=== PATIENT | female | born 1940 | race Caucasian/White ===

== ENCOUNTER 2021-04-21 12:13 | Inpatient (IN) | payer MEDICARE ==
[2021-04-21 12:57] LABS: #Eosinphils 0.1 10x3/uL (0.0-0.5); #Monocytes 0.8 10x3/uL (0.0-1.1); #Neutrophils 11.1 10x3/uL (1.5-8.4); %Basophils 0.3 % (0.0-2.0); %Eosinophils 0.4 % (0.0-6.0); %Lymphocytes 4.2 % (18.0-47.0); %Monocytes 6.5 % (0.0-10.0); Hemoglobin 12.5 g/dL (12.0-15.5); Mean Corpuscular HGB CONC 33.3 g/dL (32.0-36.0); Mean Corpuscular Hemoglobin 29.2 pg (27.0-33.0); Mean Corpuscular Volume 87.6 fl (81.6-98.3); Mean Platelet Volume 11.6 fl (7.4-10.4); Platelet Count 153 10x3/uL (150-450); RBC Distribution Width 13.4 % (11.5-14.5); Red Blood Cell (RBC) Count 4.28 10x6/uL (3.90-5.03); White Blood Cell (WBC) Count 12.6 10x3/uL (3.5-10.5)
[2021-04-21 13:08] LABS: ALT (SGPT) 25 U/L (8-55); AST (SGOT) 24 U/L (5-34); Albumin 3.8 g/dL (3.4-4.8); Alkaline Phosphatase 44 U/L (40-110); Anion Gap 15 mmol/L (10-20); BUN (Urea Nitrogen) 17 mg/dL (9.8-20.1); Bilirubin, Total 0.9 mg/dL (0.2-1.2); CK (CPK) 59 U/L (29-168); Calc. Creatinine Clearance 0 mL/min (70-130); Calcium 8.9 mg/dL (7.8-10.44); Carbon Dioxide 20 mmol/L (23-31); Chloride 100 mmol/L (98-107); Globulin 2.2 g/dL (2.4-3.5); Glucose 136 mg/dL (83-110); Potassium 4.1 mmol/L (3.5-5.1); Sodium 131 mmol/L (136-145)
[2021-04-21 14:03] LABS: Bilirubin Neg (Negative); Blood, Urine 10 (Negative); Clarity Clear (Clear); Glucose, Urine (Dipstick) Normal (Negative); Ketone, Urine 5 mg/dL (Negative); Leukocyte Negative (Negative); Nitrite Negative (Negative); Protein, Urine (Dipstick) 30 mg/dl (Neg-Trace); Specific Gravity, Urine 1.015 (1.002-1.036); Urobilinogen Normal mg/dL (Less than 2)
[2021-04-21 14:14] LABS: Bacteria/HPF None Seen HPF (None Seen); RBC/HPF 0-3 HPF (0-3); Squamous Epithelial 0-3 HPF (0-3); WBC/HPF 0-3 HPF (0-3)
[2021-04-21] MEDS ORDERED: Boostrix 0.5 ML (Tdap) VIAL ONE (15:25)
[2021-04-21] MEDS ORDERED: Bisacodyl 5 MG TAB PO PRN (16:45)
[2021-04-21] MEDS ORDERED: Senokot S 8.6-50 MG TAB PO PRN (16:45)
[2021-04-21] MEDS ORDERED: Ondansetron PF 4 MG/2 ML Vial IVP PRN (16:45)
[2021-04-21] MEDS ORDERED: Acetaminophen 650 MG/20.3 ML UDCUP PO SCH (18:00)
[2021-04-21 22:44] VITALS: BMI 22.2
[2021-04-21] MEDS: Acetaminophen 325 MG TAB PO PRN (22:50)
[2021-04-22] MEDS ORDERED: Ibuprofen 400 MG TAB PO SCH (02:45)
[2021-04-22] MEDS ORDERED: ALPRAZolam 0.25 MG TAB PO SCH (02:45)
[2021-04-22] MEDS: Acetaminophen 325 MG TAB PO PRN (04:05)
[2021-04-22 04:40] LABS: Hemoglobin 12.6 g/dL (12.0-15.5); Mean Corpuscular HGB CONC 32.7 g/dL (32.0-36.0); Mean Corpuscular Hemoglobin 28.8 pg (27.0-33.0); Mean Corpuscular Volume 88.1 fl (81.6-98.3); Mean Platelet Volume 11.6 fl (7.4-10.4); Platelet Count 145 10x3/uL (150-450); RBC Distribution Width 13.5 % (11.5-14.5); Red Blood Cell (RBC) Count 4.37 10x6/uL (3.90-5.03); White Blood Cell (WBC) Count 16.4 10x3/uL (3.5-10.5)
[2021-04-22 04:45] LABS: ALT (SGPT) 21 U/L (8-55); AST (SGOT) 18 U/L (5-34); Albumin 3.5 g/dL (3.4-4.8); Alkaline Phosphatase 42 U/L (40-110); Anion Gap 13 mmol/L (10-20); BUN (Urea Nitrogen) 14 mg/dL (9.8-20.1); Bilirubin, Total 0.9 mg/dL (0.2-1.2); Calc. Creatinine Clearance 45 mL/min (70-130); Calcium 8.9 mg/dL (7.8-10.44); Carbon Dioxide 20 mmol/L (23-31); Cardiac Risk 1.7 (Less than 4.5); Chloride 102 mmol/L (98-107); Cholesterol 81 mg/dl (< 200 Desired); Globulin 2.3 g/dL (2.4-3.5); Glucose 90 mg/dL (83-110); HDL Cholesterol 48 mg/dL (>60 Neg Risk); LDL Cholesterol, Calculated 26 mg/dL; Magnesium 1.4 mg/dL (1.6-2.6); Phosphorus 3.4 mg/dL (2.3-4.7); Protein, Total 5.8 g/dL (5.8-8.1); Sodium 131 mmol/L (136-145); Triglycerides 36 mg/dL (Less than 150)
[2021-04-22 04:56] LABS: MDiff Complete? YES
[2021-04-22 04:58] LABS: Band 27 % (5-11); Lymphocytes 1 % (21-51); Monocytes 5 % (0-10); Neutrophil 67 % (42-75)
[2021-04-22 05:00] LABS: Platelet Morphology Comment Appears Adequate; RBC Morphology Normal
[2021-04-22] MEDS ORDERED: Aspirin 81 mg Enteric Coated Tablet PO SCH (09:00)
[2021-04-22] MEDS ORDERED: Azithromycin 500 MG in Sodium Chloride 0.9% 250 ML 250 ML IVPB SCH (09:15)
[2021-04-22] MEDS ORDERED: cefTRIAXone\\ROCEPHIN 2 GM in Sodium Chloride 0.9% 100 ML IVPB SCH (09:15)
[2021-04-22] MEDS: Pramipexole Di-HCl 0.25 MG TAB PO SCH (09:35)
[2021-04-22 10:16] LABS: Legionella Urinary Ag Negative (Negative); Strep pneumo Urine Ag NEGATIVE (NEGATIVE)
[2021-04-22] MEDS: Albuterol Sulfate 2.5 mg/3 ml Neb NEB SCH ×2 (11:05→15:33)
[2021-04-22] MEDS: Azithromycin 500 MG in Sodium Chloride 0.9% 250 ML 250 ML IVPB SCH (11:40)
[2021-04-22 13:41] LABS: Hemoglobin A1c 5.9 % (4.0-6.0)
[2021-04-22] MEDS ORDERED: Acetaminophen 650 MG/20.3 ML UDCUP PO PRN (14:30)
[2021-04-22 16:13] LABS: Actual Bicarbonate (HCO3v) 16 mEq/L (22-28); Base Excess -8.1 mEq/L (-2.0 to +3.0); Calcium, Ionized (venous) 0.98 mmol/L (1.16-1.32); Chloride (VBG) 104 mmol/L (98-106); Hemoglobin (Hb) 9.7 g/dL (11.7-16.1); Potassium (VBG) 3.84 mmol/L (3.70-5.30); Puncture Site Other Site; RapidComm Collect By lab; Sodium 127.8 mmol/L (133-146); pH (venous) 7.35 (7.32-7.43)
[2021-04-22 16:32] LABS: Hemoglobin 11.1 g/dL (12.0-15.5); Mean Corpuscular HGB CONC 32.6 g/dL (32.0-36.0); Mean Corpuscular Hemoglobin 29.5 pg (27.0-33.0); Mean Corpuscular Volume 90.7 fl (81.6-98.3); Mean Platelet Volume 12.1 fl (7.4-10.4); Platelet Count 121 10x3/uL (150-450); RBC Distribution Width 13.5 % (11.5-14.5); Red Blood Cell (RBC) Count 3.76 10x6/uL (3.90-5.03); White Blood Cell (WBC) Count 14.6 10x3/uL (3.5-10.5)
[2021-04-22 16:33] LABS: Lactic Acid 3.9 mmol/L (0.5-2.2)
[2021-04-22 16:35] LABS: MDiff Complete? YES; Manual Diff?? YES
[2021-04-22 16:35] LABS: INR-International Normal Ratio 1.7; PTT 38.4 sec (22.0-33.0); Prothrombin Time 18.8 sec (9.5-12.1)
[2021-04-22 16:36] LABS: Anion Gap 14 mmol/L (10-20); BUN (Urea Nitrogen) 18 mg/dL (9.8-20.1); Calc. Creatinine Clearance 40 mL/min (70-130); Calcium 7.7 mg/dL (7.8-10.44); Carbon Dioxide 18 mmol/L (23-31); Chloride 104 mmol/L (98-107); Glucose 80 mg/dL (83-110); Magnesium 1.3 mg/dL (1.6-2.6); Sodium 132 mmol/L (136-145)
[2021-04-22] MEDS ORDERED: Sodium Chloride 0.9% 500 ML IV SCH (16:45)
[2021-04-22] MEDS: Magnesium 2 GM/50 ML 2 GM in Premix Bag 1 BAG IVPB SCH ×2 (16:56→19:45)
[2021-04-22] MEDS ORDERED: Vancomycin HCl 1 GM in Sodium Chloride 0.9% 250 ML 250 ML IVPB SCH (17:00)
[2021-04-22] MEDS ORDERED: Lactated Ringer's 1,000 ML IV SCH (17:00)
[2021-04-22 17:33] LABS: Band 50 % (5-11); Lymphocytes 2 % (21-51); Metamyelocyte 5 % (0-0); Monocytes 3 % (0-10); Neutrophil 39 % (42-75); Reactive Lymphocytes 1 % (0-10)
[2021-04-22 17:35] LABS: Giant Platelets SLIGHT; Platelet Morphology Comment Appears Adequate
[2021-04-22 17:36] LABS: Dohle Bodies SLIGHT; Toxic Granulation SLIGHT; Vacuoles SLIGHT
[2021-04-22 18:09] LABS: SARS-CoV-2 NAA Rapid Test Not Detected (NotDetected)
[2021-04-22] MEDS: Budesonide 0.5 MG/2 ML NEB NEB SCH (19:35)
[2021-04-22] MEDS ORDERED: Vancomycin 1 GM in Premix Bag 1 BAG IVPB SCH (21:00)
[2021-04-22] MEDS: Cefepime 2 GM in Sodium Chloride 0.9% 100 ML IVPB SCH (21:48)
[2021-04-22] MEDS: Rosuvastatin 20 MG TAB PO SCH (21:49)
[2021-04-23] MEDS ORDERED: Sodium Chloride 0.9% 1,000 ML IV SCH ×2 (01:00→22:30)
[2021-04-23 05:53] LABS: Hemoglobin 11.2 g/dL (12.0-15.5); Mean Corpuscular HGB CONC 31.7 g/dL (32.0-36.0); Mean Corpuscular Hemoglobin 28.9 pg (27.0-33.0); Mean Platelet Volume 12.4 fl (7.4-10.4); Platelet Count 126 10x3/uL (150-450); RBC Distribution Width 13.7 % (11.5-14.5); Red Blood Cell (RBC) Count 3.88 10x6/uL (3.90-5.03); White Blood Cell (WBC) Count 15.1 10x3/uL (3.5-10.5)
[2021-04-23] MEDS: Budesonide 0.5 MG/2 ML NEB NEB SCH ×2 (07:05→19:00)
[2021-04-23 07:24] LABS: Band 27 % (5-11); Lymphocytes 1 % (21-51); Monocytes 3 % (0-10); Neutrophil 69 % (42-75)
[2021-04-23 07:26] LABS: Anisocytosis SLIGHT = 6-15 cells (100X) (0-5/hpf); Burr Cells SLIGHT = 2-5 cells (100X) (0-1/hpf); Crenated RBC MODERATE= 6-15 cells (100X) (None Seen); Ovalocytes SLIGHT = 2-5 cells (100X) (0-1/hpf); Poikilocytosis MODERATE=16-30 cells (100X) (0-5/hpf)
[2021-04-23 07:27] LABS: Large Platelets SLIGHT; Microcytosis SLIGHT = 6-15 cells (100X) (0-5/hpf)
[2021-04-23 07:28] LABS: Dohle Bodies SLIGHT; MDiff Complete? YES; Platelet Morphology Comment Appears Decreased; Toxic Granulation SLIGHT
[2021-04-23 07:35] LABS: ALT (SGPT) 19 U/L (8-55); AST (SGOT) 19 U/L (5-34); Albumin 2.8 g/dL (3.4-4.8); Alkaline Phosphatase 51 U/L (40-110); Anion Gap 12 mmol/L (10-20); BUN (Urea Nitrogen) 26 mg/dL (9.8-20.1); Bilirubin, Total 0.3 mg/dL (0.2-1.2); Calc. Creatinine Clearance 39 mL/min (70-130); Calcium 8.3 mg/dL (7.8-10.44); Carbon Dioxide 18 mmol/L (23-31); Chloride 107 mmol/L (98-107); Globulin 2.3 g/dL (2.4-3.5); Glucose 62 mg/dL (83-110); Magnesium 3.2 mg/dL (1.6-2.6); Phosphorus 3.3 mg/dL (2.3-4.7); Potassium 4.3 mmol/L (3.5-5.1); Protein, Total 5.1 g/dL (5.8-8.1); Sodium 133 mmol/L (136-145)
[2021-04-23] MEDS ORDERED: Pantoprazole 40 MG GRANULES PACKET PO SCH (09:00)
[2021-04-23] MEDS ORDERED: Metoprolol Tartrate 25 MG TAB PO SCH (09:00)
[2021-04-23] MEDS ORDERED: FLU VACC QS2021-22(65YR UP)/PF 240 MCG/0.7 ML SYRINGE IM ONE (09:00)
[2021-04-23] MEDS ORDERED: Enoxaparin Sodium 40 MG/0.4 ML SYRINGE SC SCH (09:00)
[2021-04-23] MEDS ORDERED: Lisinopril 10 MG TAB PO SCH (09:00)
[2021-04-23] MEDS: Cefepime 2 GM in Sodium Chloride 0.9% 100 ML IVPB SCH ×3 (10:46→22:30)
[2021-04-23] MEDS: Pramipexole Di-HCl 0.25 MG TAB PO SCH (10:47)
[2021-04-23] MEDS: Aspirin Chewable 81 MG TAB PO SCH (10:47)
[2021-04-23] MEDS: Pantoprazole 40 MG VIAL IVP SCH (10:47)
[2021-04-23] MEDS: Enoxaparin Sodium 40 MG/0.4 ML SYRINGE SC SCH (10:48)
[2021-04-23] MEDS: Azithromycin 500 MG in Sodium Chloride 0.9% 250 ML 250 ML IVPB SCH (12:00)
[2021-04-23] MEDS: Vancomycin HCl 750 MG in Sodium Chloride 0.9% 250 ML 250 ML IVPB SCH (17:03)
[2021-04-23] MEDS: Rosuvastatin 20 MG TAB PO SCH (21:15)
[2021-04-23] MEDS: Metoprolol Tartrate 5 MG/5 ML VIAL IVP SCH (22:21)
[2021-04-24] MEDS: Metoprolol Tartrate 5 MG/5 ML VIAL IVP SCH ×4 (03:27→20:46)
[2021-04-24 05:59] LABS: ALT (SGPT) 17 U/L (8-55); AST (SGOT) 16 U/L (5-34); Alkaline Phosphatase 86 U/L (40-110); Anion Gap 14 mmol/L (10-20); BUN (Urea Nitrogen) 32 mg/dL (9.8-20.1); Bilirubin, Total 0.4 mg/dL (0.2-1.2); Calc. Creatinine Clearance 44 mL/min (70-130); Calcium 8.5 mg/dL (7.8-10.44); Carbon Dioxide 17 mmol/L (23-31); Chloride 112 mmol/L (98-107); Globulin 2.6 g/dL (2.4-3.5); Glucose 98 mg/dL (83-110); Magnesium 2.7 mg/dL (1.6-2.6); Potassium 3.9 mmol/L (3.5-5.1); Protein, Total 5.6 g/dL (5.8-8.1); Sodium 139 mmol/L (136-145)
[2021-04-24 06:03] LABS: Phosphorus 2.6 mg/dL (2.3-4.7)
[2021-04-24 06:10] LABS: Hemoglobin 11.2 g/dL (12.0-15.5); Mean Corpuscular HGB CONC 32.4 g/dL (32.0-36.0); Mean Corpuscular Hemoglobin 29.2 pg (27.0-33.0); Mean Corpuscular Volume 90.1 fl (81.6-98.3); Platelet Count 147 10x3/uL (150-450); RBC Distribution Width 14.2 % (11.5-14.5); Red Blood Cell (RBC) Count 3.84 10x6/uL (3.90-5.03); White Blood Cell (WBC) Count 17.4 10x3/uL (3.5-10.5)
[2021-04-24] MEDS: Budesonide 0.5 MG/2 ML NEB NEB SCH ×2 (06:50→19:10)
[2021-04-24] MEDS ORDERED: Labetalol HCl 100 MG/20 ML VIAL SLOW IVP SCH (07:00)
[2021-04-24] MEDS ORDERED: Furosemide 40 MG/4 ML VIAL ONE (07:38)
[2021-04-24 08:24] LABS: Band 16 % (5-11); Lymphocytes 3 % (21-51); Monocytes 8 % (0-10)
[2021-04-24 08:31] LABS: Burr Cells MODERATE= 6-15 cells (100X) (0-1/hpf); Neutrophil 73 % (42-75); Poikilocytosis MODERATE=16-30 cells (100X) (0-5/hpf)
[2021-04-24 08:32] LABS: Crenated RBC SLIGHT = 1-5 cells (100X) (None Seen)
[2021-04-24 08:33] LABS: Anisocytosis SLIGHT = 6-15 cells (100X) (0-5/hpf)
[2021-04-24 08:34] LABS: Elliptocytes SLIGHT = 2-5 cells (100X) (0-1/hpf); Ovalocytes SLIGHT = 2-5 cells (100X) (0-1/hpf)
[2021-04-24 08:35] LABS: Dohle Bodies SLIGHT; Microcytosis SLIGHT = 6-15 cells (100X) (0-5/hpf); Toxic Granulation SLIGHT
[2021-04-24 08:36] LABS: Large Platelets MODERATE; Platelet Morphology Comment Appears Adequate
[2021-04-24 08:37] LABS: MDiff Complete? YES
[2021-04-24 08:38] LABS: Actual Bicarbonate (HCO3a) 19.3 mEq/L (22-28); Base Excess (BEa) -6.2 mEq/L (-2.0 to +3.0); CO2 Tension 38.1 mmHg (35.0-45.0); Calcium, Ionized (arterial) 1.21 mmol/L (1.12-1.30); Carboxyhemoglobin (COHb) 0.4 gm% (0.0-3.0); Hemoglobin (Hb) 13.1 g/dL (12.0-16.0); O2 Tension (PaO2), arterial 58.6 mmHg (> 60.0); Potassium - ABG Lab 3.7 mmol/L (3.70-5.30); Puncture Site LRA; pH, Arterial 7.32 (7.35-7.45)
[2021-04-24 08:40] LABS: ALV-art Gradient 250.275 mmHg (0-20)
[2021-04-24] MEDS ORDERED: Pantoprazole 40 MG VIAL ONE (08:45)
[2021-04-24] MEDS: Cefepime 2 GM in Sodium Chloride 0.9% 100 ML IVPB SCH ×2 (08:55→22:34)
[2021-04-24] MEDS: Pantoprazole 40 MG VIAL IVP SCH (08:56)
[2021-04-24] MEDS: Azithromycin 500 MG in Sodium Chloride 0.9% 250 ML 250 ML IVPB SCH (08:56)
[2021-04-24] MEDS: Enoxaparin Sodium 40 MG/0.4 ML SYRINGE SC SCH (08:57)
[2021-04-24] MEDS ORDERED: Metoprolol Tartrate 25 MG TAB PO SCH (09:00)
[2021-04-24] MEDS: Pramipexole Di-HCl 0.25 MG TAB PO SCH (09:14)
[2021-04-24] MEDS: Aspirin Chewable 81 MG TAB PO SCH (09:14)
[2021-04-24] MEDS ORDERED: methylPREDNISolone Sod Succ/PF 40 MG in Sodium Chloride 0.9% 250 ML 250 ML IVPB SCH (12:04)
[2021-04-24] MEDS: methylPREDNISolone Sod Succ 40 MG VIAL IVP SCH ×2 (14:08→18:06)
[2021-04-24] MEDS ORDERED: Ketorolac Tromethamine 30 MG/ML VIAL IVP PRN (14:29)
[2021-04-24] MEDS ORDERED: Acetaminophen 325 MG Suppository PR PRN (14:30)
[2021-04-24] MEDS ORDERED: Morphine 4 MG/ML VIAL SLOW IVP PRN (14:48)
[2021-04-24] MEDS ORDERED: Furosemide 20 MG/2 ML VIAL SLOW IVP SCH (16:00)
[2021-04-24] MEDS: Vancomycin HCl 750 MG in Sodium Chloride 0.9% 250 ML 250 ML IVPB SCH (16:48)
[2021-04-24 17:06] LABS: Vancomycin, Trough 8.7 ug/mL
[2021-04-24] MEDS: Rosuvastatin 20 MG TAB PO SCH (20:49)
[2021-04-25] MEDS: methylPREDNISolone Sod Succ 40 MG VIAL IVP SCH ×5 (01:24→23:43)
[2021-04-25] MEDS: Metoprolol Tartrate 5 MG/5 ML VIAL IVP SCH ×3 (03:59→13:33)
[2021-04-25 04:24] LABS: Hemoglobin 11.7 g/dL (12.0-15.5); Mean Corpuscular HGB CONC 32.5 g/dL (32.0-36.0); Mean Corpuscular Hemoglobin 28.9 pg (27.0-33.0); Mean Corpuscular Volume 88.9 fl (81.6-98.3); Mean Platelet Volume 12.1 fl (7.4-10.4); Platelet Count 164 10x3/uL (150-450); RBC Distribution Width 14.2 % (11.5-14.5); Red Blood Cell (RBC) Count 4.05 10x6/uL (3.90-5.03); White Blood Cell (WBC) Count 8.4 10x3/uL (3.5-10.5)
[2021-04-25 04:33] LABS: ALT (SGPT) 21 U/L (8-55); AST (SGOT) 19 U/L (5-34); Albumin 3.2 g/dL (3.4-4.8); Alkaline Phosphatase 72 U/L (40-110); Anion Gap 13 mmol/L (10-20); BUN (Urea Nitrogen) 43 mg/dL (9.8-20.1); Bilirubin, Total 0.5 mg/dL (0.2-1.2); Calc. Creatinine Clearance 32 mL/min (70-130); Carbon Dioxide 22 mmol/L (23-31); Chloride 112 mmol/L (98-107); Globulin 2.9 g/dL (2.4-3.5); Glucose 360 mg/dL (83-110); Magnesium 2.3 mg/dL (1.6-2.6); Potassium 3.2 mmol/L (3.5-5.1); Protein, Total 6.1 g/dL (5.8-8.1); Sodium 144 mmol/L (136-145)
[2021-04-25 05:02] LABS: Phosphorus 1.9 mg/dL (2.3-4.7)
[2021-04-25 05:10] LABS: Lymphocytes 3 % (21-51); Myelocyte 1 % (0-0); Neutrophil 90 % (42-75)
[2021-04-25 05:11] LABS: Band 3 % (5-11); Monocytes 3 % (0-10)
[2021-04-25 05:13] LABS: Anisocytosis SLIGHT = 6-15 cells (100X) (0-5/hpf); Microcytosis SLIGHT = 6-15 cells (100X) (0-5/hpf); Poikilocytosis SLIGHT = 6-15 cells (100X) (0-5/hpf)
[2021-04-25 05:14] LABS: Burr Cells SLIGHT = 2-5 cells (100X) (0-1/hpf); Ovalocytes SLIGHT = 2-5 cells (100X) (0-1/hpf)
[2021-04-25 05:15] LABS: Large Platelets MODERATE; Platelet Clumps SLIGHT; Platelet Morphology Comment Appears Adequate
[2021-04-25 05:17] LABS: Elliptocytes SLIGHT = 2-5 cells (100X) (0-1/hpf); MDiff Complete? YES; Toxic Granulation SLIGHT
[2021-04-25] MEDS ORDERED: Potassium Phosphate 30 MMOL in Sodium Chloride 0.9% 500 ML IVPB SCH (05:30)
[2021-04-25] MEDS: Budesonide 0.5 MG/2 ML NEB NEB SCH ×2 (07:00→19:10)
[2021-04-25] MEDS: Pramipexole Di-HCl 0.25 MG TAB PO SCH (08:02)
[2021-04-25] MEDS: Aspirin Chewable 81 MG TAB PO SCH (08:02)
[2021-04-25] MEDS: Enoxaparin Sodium 40 MG/0.4 ML SYRINGE SC SCH (08:03)
[2021-04-25] MEDS: Cefepime 2 GM in Sodium Chloride 0.9% 100 ML IVPB SCH ×2 (08:03→22:19)
[2021-04-25] MEDS: Pantoprazole 40 MG VIAL IVP SCH (08:03)
[2021-04-25] MEDS: Azithromycin 500 MG in Sodium Chloride 0.9% 250 ML 250 ML IVPB SCH (08:03)
[2021-04-25] MEDS ORDERED: Amino Acids 4.25 %/Dextrose 5% 2,000 ML BAG IV SCH (09:00)
[2021-04-25] MEDS: Vancomycin HCl 750 MG in Sodium Chloride 0.9% 250 ML 250 ML IVPB SCH (11:46)
[2021-04-25] MEDS ORDERED: Dextrose 50% Abboject 50 ML SYRINGE SLOW IVP PRN (12:12)
[2021-04-25] MEDS ORDERED: Dextrose 5% in Water 1,000 ML IV PRN (12:12)
[2021-04-25] MEDS ORDERED: Electrolyte Replacement Protocol 1 EACH FS PRN (12:15)
[2021-04-25] MEDS ORDERED: Amlodipine 5 MG TAB PO SCH (13:00)
[2021-04-25] MEDS: HumaLOG 300 UNITS/3 ML VIAL SC PRN ×2 (17:44→22:46)
[2021-04-25] MEDS: Rosuvastatin 20 MG TAB PO SCH (19:28)
[2021-04-25] MEDS ORDERED: Metoprolol Tartrate 5 MG/5 ML VIAL IVP PRN (20:01)
[2021-04-25] MEDS ORDERED: Metoprolol Tartrate 25 MG TAB PO SCH ×2 (20:45→21:00)
[2021-04-25] MEDS ORDERED: Metoprolol Tartrate 50 MG TAB PO SCH (21:00)
[2021-04-26 02:39] LABS: #Monocytes 1.4 10x3/uL (0.0-1.1); #Neutrophils 10.6 10x3/uL (1.5-8.4); %Basophils 0.2 % (0.0-2.0); %Monocytes 10.8 % (0.0-10.0); Mean Corpuscular HGB CONC 31.5 g/dL (32.0-36.0); Mean Corpuscular Hemoglobin 28.6 pg (27.0-33.0); Mean Corpuscular Volume 90.9 fl (81.6-98.3); Mean Platelet Volume 12.3 fl (7.4-10.4); Platelet Count 172 10x3/uL (150-450); RBC Distribution Width 14.5 % (11.5-14.5); Red Blood Cell (RBC) Count 4.19 10x6/uL (3.90-5.03); White Blood Cell (WBC) Count 12.5 10x3/uL (3.5-10.5)
[2021-04-26 03:09] LABS: ALT (SGPT) 28 U/L (8-55); AST (SGOT) 27 U/L (5-34); Albumin 3.3 g/dL (3.4-4.8); Alkaline Phosphatase 77 U/L (40-110); Anion Gap 14 mmol/L (10-20); BUN (Urea Nitrogen) 39 mg/dL (9.8-20.1); Bilirubin, Total 0.4 mg/dL (0.2-1.2); Calc. Creatinine Clearance 45 mL/min (70-130); Carbon Dioxide 26 mmol/L (23-31); Chloride 116 mmol/L (98-107); Globulin 2.8 g/dL (2.4-3.5); Glucose 218 mg/dL (83-110); Magnesium 2.4 mg/dL (1.6-2.6); Potassium 3.7 mmol/L (3.5-5.1); Protein, Total 6.1 g/dL (5.8-8.1); Sodium 152 mmol/L (136-145)
[2021-04-26] MEDS: Budesonide 0.5 MG/2 ML NEB NEB SCH ×2 (06:50→19:10)
[2021-04-26] MEDS: HumaLOG 300 UNITS/3 ML VIAL SC PRN ×3 (06:59→17:06)
[2021-04-26] MEDS: Vancomycin HCl 750 MG in Sodium Chloride 0.9% 250 ML 250 ML IVPB SCH (07:00)
[2021-04-26] MEDS: methylPREDNISolone Sod Succ 40 MG VIAL IVP SCH ×4 (07:08→23:58)
[2021-04-26] MEDS: PHOS-NAK 1 PKT PACK PO SCH ×2 (07:08→10:26)
[2021-04-26] MEDS: Enoxaparin Sodium 40 MG/0.4 ML SYRINGE SC SCH (07:34)
[2021-04-26] MEDS: Amlodipine 5 MG TAB PO SCH (07:34)
[2021-04-26] MEDS: Aspirin Chewable 81 MG TAB PO SCH (07:34)
[2021-04-26] MEDS: Pantoprazole 40 MG VIAL IVP SCH (07:35)
[2021-04-26] MEDS: Metoprolol Tartrate 50 MG TAB PO SCH ×2 (07:35→21:05)
[2021-04-26 08:47] LABS: Hemoglobin A1c 6.1 % (4.0-6.0)
[2021-04-26] MEDS: Cefepime 2 GM in Sodium Chloride 0.9% 100 ML IVPB SCH (10:26)
[2021-04-26] MEDS: Pramipexole Di-HCl 0.25 MG TAB PO SCH (10:28)
[2021-04-26] MEDS ORDERED: Piperacillin/Tazobactam 3.375 GM in Sodium Chloride 0.9% 100 ML IVPB SCH ×2 (10:45→12:00)
[2021-04-26] MEDS: Azithromycin 500 MG in Sodium Chloride 0.9% 250 ML 250 ML IVPB SCH (10:47)
[2021-04-26] MEDS ORDERED: Famotidine/PF 20 mg/2ml Vial SLOW IVP SCH (11:00)
[2021-04-26] MEDS: Piperacillin/Tazobactam 3.375 GM in Sodium Chloride 0.9% 100 ML IVPB SCH ×2 (17:10→23:57)
[2021-04-26] MEDS: Apixaban 2.5 MG TAB PO SCH (21:05)
[2021-04-26] MEDS: Rosuvastatin 20 MG TAB PO SCH (21:06)
[2021-04-27] MEDS: HumaLOG 300 UNITS/3 ML VIAL SC PRN ×4 (04:50→17:11)
[2021-04-27] MEDS: methylPREDNISolone Sod Succ 40 MG VIAL IVP SCH ×3 (06:22→17:50)
[2021-04-27] MEDS: Budesonide 0.5 MG/2 ML NEB NEB SCH ×2 (07:17→19:15)
[2021-04-27 08:08] LABS: #Monocytes 0.5 10x3/uL (0.0-1.1); #Neutrophils 9.2 10x3/uL (1.5-8.4); %Basophils 0.1 % (0.0-2.0); %Lymphocytes 3.1 % (18.0-47.0); %Monocytes 5.2 % (0.0-10.0); %Neutrophils 90.7 % (40.0-75.0); Hemoglobin 11.4 g/dL (12.0-15.5); Mean Corpuscular HGB CONC 31.3 g/dL (32.0-36.0); Mean Corpuscular Hemoglobin 28.6 pg (27.0-33.0); Mean Corpuscular Volume 91.5 fl (81.6-98.3); Mean Platelet Volume 12.7 fl (7.4-10.4); Platelet Count 142 10x3/uL (150-450); RBC Distribution Width 14.6 % (11.5-14.5); Red Blood Cell (RBC) Count 3.98 10x6/uL (3.90-5.03); White Blood Cell (WBC) Count 10.1 10x3/uL (3.5-10.5)
[2021-04-27] MEDS: Metoprolol Tartrate 50 MG TAB PO SCH ×2 (08:31→20:52)
[2021-04-27] MEDS: Aspirin Chewable 81 MG TAB PO SCH (08:31)
[2021-04-27] MEDS: Apixaban 2.5 MG TAB PO SCH ×2 (08:31→20:52)
[2021-04-27] MEDS: Amlodipine 5 MG TAB PO SCH (08:32)
[2021-04-27] MEDS: Piperacillin/Tazobactam 3.375 GM in Sodium Chloride 0.9% 100 ML IVPB SCH ×2 (08:39→16:24)
[2021-04-27 08:53] LABS: ALT (SGPT) 49 U/L (8-55); AST (SGOT) 65 U/L (5-34); Albumin 3.2 g/dL (3.4-4.8); Alkaline Phosphatase 77 U/L (40-110); Anion Gap 12 mmol/L (10-20); BUN (Urea Nitrogen) 37 mg/dL (9.8-20.1); Bilirubin, Total 0.5 mg/dL (0.2-1.2); Calc. Creatinine Clearance 45 mL/min (70-130); Calcium 8.2 mg/dL (7.8-10.44); Carbon Dioxide 32 mmol/L (23-31); Chloride 110 mmol/L (98-107); Globulin 2.4 g/dL (2.4-3.5); Glucose 222 mg/dL (83-110); Magnesium 2.2 mg/dL (1.6-2.6); Protein, Total 5.6 g/dL (5.8-8.1); Sodium 151 mmol/L (136-145)
[2021-04-27] MEDS ORDERED: Famotidine/PF 20 mg/2ml Vial SLOW IVP SCH (09:00)
[2021-04-27] MEDS ORDERED: Potassium Bicarbonate/Cit Ac 20 MEQ TAB PO SCH (09:15)
[2021-04-27] MEDS: Pramipexole Di-HCl 0.25 MG TAB PO SCH (09:30)
[2021-04-27 09:41] LABS: Phosphorus 2.7 mg/dL (2.3-4.7)
[2021-04-27] MEDS ORDERED: Metolazone 5 MG TAB PER TUBE SCH (15:00)
[2021-04-27 16:10] LABS: Anion Gap 15 mmol/L (10-20); BUN (Urea Nitrogen) 38 mg/dL (9.8-20.1); Calc. Creatinine Clearance 47 mL/min (70-130); Calcium 8.2 mg/dL (7.8-10.44); Carbon Dioxide 30 mmol/L (23-31); Chloride 109 mmol/L (98-107); Glucose 227 mg/dL (83-110); Potassium 3.7 mmol/L (3.5-5.1); Sodium 150 mmol/L (136-145)
[2021-04-27] MEDS: Potassium Bicarbonate/Cit Ac 20 MEQ TAB PER TUBE SCH ×2 (16:23→17:49)
[2021-04-27] MEDS: Rosuvastatin 20 MG TAB PO SCH (20:52)
[2021-04-28] MEDS: methylPREDNISolone Sod Succ 40 MG VIAL IVP SCH ×5 (01:45→22:54)
[2021-04-28] MEDS: Piperacillin/Tazobactam 3.375 GM in Sodium Chloride 0.9% 100 ML IVPB SCH ×3 (01:45→15:27)
[2021-04-28 04:36] LABS: #Monocytes 0.7 10x3/uL (0.0-1.1); %Basophils 0.1 % (0.0-2.0); %Monocytes 5.3 % (0.0-10.0); %Neutrophils 90.8 % (40.0-75.0); Hemoglobin 11.3 g/dL (12.0-15.5); Mean Corpuscular HGB CONC 31.2 g/dL (32.0-36.0); Mean Corpuscular Hemoglobin 28.6 pg (27.0-33.0); Mean Corpuscular Volume 91.6 fl (81.6-98.3); Mean Platelet Volume 12.7 fl (7.4-10.4); Platelet Count 136 10x3/uL (150-450); RBC Distribution Width 14.4 % (11.5-14.5); Red Blood Cell (RBC) Count 3.95 10x6/uL (3.90-5.03); White Blood Cell (WBC) Count 13.3 10x3/uL (3.5-10.5)
[2021-04-28 04:45] LABS: ALT (SGPT) 59 U/L (8-55); AST (SGOT) 44 U/L (5-34); Albumin 3.3 g/dL (3.4-4.8); Alkaline Phosphatase 82 U/L (40-110); Anion Gap 14 mmol/L (10-20); BUN (Urea Nitrogen) 38 mg/dL (9.8-20.1); Bilirubin, Total 0.5 mg/dL (0.2-1.2); Calc. Creatinine Clearance 45 mL/min (70-130); Calcium 8.7 mg/dL (7.8-10.44); Carbon Dioxide 35 mmol/L (23-31); Chloride 106 mmol/L (98-107); Globulin 2.2 g/dL (2.4-3.5); Glucose 246 mg/dL (83-110); Magnesium 2.3 mg/dL (1.6-2.6); Phosphorus 2.6 mg/dL (2.3-4.7); Potassium 3.8 mmol/L (3.5-5.1); Protein, Total 5.5 g/dL (5.8-8.1); Sodium 151 mmol/L (136-145)
[2021-04-28] MEDS: Budesonide 0.5 MG/2 ML NEB NEB SCH ×2 (07:40→18:50)
[2021-04-28] MEDS: Pantoprazole 40 MG VIAL IVP SCH (08:43)
[2021-04-28] MEDS: Metoprolol Tartrate 50 MG TAB PO SCH ×2 (08:43→21:41)
[2021-04-28] MEDS: Amlodipine 5 MG TAB PO SCH (08:43)
[2021-04-28] MEDS: Apixaban 2.5 MG TAB PO SCH ×2 (08:43→21:40)
[2021-04-28] MEDS: Pramipexole Di-HCl 0.25 MG TAB PO SCH (08:43)
[2021-04-28] MEDS: Metolazone 5 MG TAB PER TUBE SCH (08:43)
[2021-04-28] MEDS: Aspirin Chewable 81 MG TAB PO SCH (08:43)
[2021-04-28] MEDS ORDERED: AcetaZOLAMIDE 250 MG TAB PER TUBE SCH (12:00)
[2021-04-28] MEDS: HumaLOG 300 UNITS/3 ML VIAL SC PRN ×2 (12:47→18:52)
[2021-04-28 14:00] LABS: Anion Gap 13 mmol/L (10-20); BUN (Urea Nitrogen) 39 mg/dL (9.8-20.1); Calc. Creatinine Clearance 45 mL/min (70-130); Calcium 8.8 mg/dL (7.8-10.44); Carbon Dioxide 37 mmol/L (23-31); Chloride 104 mmol/L (98-107); Glucose 280 mg/dL (83-110); Potassium 3.5 mmol/L (3.5-5.1); Sodium 150 mmol/L (136-145)
[2021-04-28] MEDS ORDERED: Losartan 25 MG TAB PO SCH (17:30)
[2021-04-28] MEDS ORDERED: Potassium Bicarbonate/Cit Ac 20 MEQ TAB PO SCH (18:00)
[2021-04-28] MEDS ORDERED: Lantus 1000 UNITS/10 ML VIAL SC SCH (21:00)
[2021-04-28] MEDS: Rosuvastatin 20 MG TAB PO SCH (21:40)
[2021-04-29] MEDS: Piperacillin/Tazobactam 3.375 GM in Sodium Chloride 0.9% 100 ML IVPB SCH ×3 (00:42→15:53)
[2021-04-29 04:38] LABS: Hemoglobin 10.6 g/dL (12.0-15.5); Mean Corpuscular HGB CONC 30.6 g/dL (32.0-36.0); Mean Corpuscular Hemoglobin 28.4 pg (27.0-33.0); Mean Corpuscular Volume 92.8 fl (81.6-98.3); Mean Platelet Volume 13.1 fl (7.4-10.4); Platelet Count 130 10x3/uL (150-450); RBC Distribution Width 14.4 % (11.5-14.5); Red Blood Cell (RBC) Count 3.73 10x6/uL (3.90-5.03); White Blood Cell (WBC) Count 17.1 10x3/uL (3.5-10.5)
[2021-04-29 04:52] LABS: Magnesium 2.1 mg/dL (1.6-2.6); Phosphorus 3.8 mg/dL (2.3-4.7)
[2021-04-29 05:13] LABS: MDiff Complete? YES
[2021-04-29 05:15] LABS: Band 7 % (5-11); Lymphocytes 3 % (21-51); Monocytes 3 % (0-10); Neutrophil 87 % (42-75)
[2021-04-29 05:16] LABS: RBC Morphology Normal
[2021-04-29 05:17] LABS: Platelet Morphology Comment Appears Decreased
[2021-04-29] MEDS: methylPREDNISolone Sod Succ 40 MG VIAL IVP SCH ×2 (05:36→10:55)
[2021-04-29] MEDS: HumaLOG 300 UNITS/3 ML VIAL SC PRN ×3 (05:36→17:13)
[2021-04-29] MEDS: Budesonide 0.5 MG/2 ML NEB NEB SCH ×2 (07:30→19:20)
[2021-04-29] MEDS: Losartan 25 MG TAB PO SCH (08:54)
[2021-04-29] MEDS: Pramipexole Di-HCl 0.25 MG TAB PO SCH (08:54)
[2021-04-29] MEDS: Metoprolol Tartrate 50 MG TAB PO SCH ×3 (08:54→22:42)
[2021-04-29] MEDS: Aspirin Chewable 81 MG TAB PO SCH (08:54)
[2021-04-29] MEDS: Pantoprazole 40 MG VIAL IVP SCH (08:54)
[2021-04-29] MEDS: Apixaban 2.5 MG TAB PO SCH ×3 (08:54→22:42)
[2021-04-29] MEDS: Metolazone 5 MG TAB PER TUBE SCH (08:54)
[2021-04-29] MEDS: Amlodipine 5 MG TAB PO SCH (08:54)
[2021-04-29 09:46] LABS: Anion Gap 11 mmol/L (10-20); BUN (Urea Nitrogen) 42 mg/dL (9.8-20.1); Calc. Creatinine Clearance 43 mL/min (70-130); Calcium 8.8 mg/dL (7.8-10.44); Carbon Dioxide 29 mmol/L (23-31); Chloride 108 mmol/L (98-107); Glucose 278 mg/dL (83-110); Potassium 3.3 mmol/L (3.5-5.1); Sodium 145 mmol/L (136-145)
[2021-04-29] MEDS ORDERED: Potassium Chloride 20 MEQ TAB PO SCH (11:00)
[2021-04-29] MEDS ORDERED: Lantus 1000 UNITS/10 ML VIAL SC SCH (21:00)
[2021-04-29] MEDS: Rosuvastatin 20 MG TAB PO SCH ×2 (21:06→22:44)
[2021-04-29] MEDS ORDERED: Enoxaparin Sodium 30 MG/0.3 ML SYRINGE SC SCH (22:30)
[2021-04-29] MEDS ORDERED: Metoprolol Tartrate 5 MG/5 ML VIAL IVP SCH (22:30)
[2021-04-30 04:30] LABS: Albumin 3.1 g/dL (3.4-4.8); Anion Gap 12 mmol/L (10-20); BUN (Urea Nitrogen) 35 mg/dL (9.8-20.1); BUN/Creatinine Ratio 48.61; Calc. Creatinine Clearance 48 mL/min (70-130); Carbon Dioxide 27 mmol/L (23-31); Chloride 105 mmol/L (98-107); Glucose 152 mg/dL (83-110); Potassium 3.4 mmol/L (3.5-5.1); Sodium 141 mmol/L (136-145)
[2021-04-30] MEDS: Piperacillin/Tazobactam 3.375 GM in Sodium Chloride 0.9% 100 ML IVPB SCH ×3 (06:26→15:21)
[2021-04-30] MEDS: Budesonide 0.5 MG/2 ML NEB NEB SCH ×2 (07:30→20:00)
[2021-04-30] MEDS ORDERED: Potassium Chloride 20 MEQ TAB PO SCH ×2 (08:00→16:45)
[2021-04-30] MEDS: Pantoprazole 40 MG VIAL IVP SCH (08:04)
[2021-04-30] MEDS: Aspirin Chewable 81 MG TAB PO SCH (08:04)
[2021-04-30] MEDS: Apixaban 2.5 MG TAB PO SCH ×2 (08:05→20:59)
[2021-04-30] MEDS: Losartan 25 MG TAB PO SCH (08:05)
[2021-04-30] MEDS: Amlodipine 5 MG TAB PO SCH (08:05)
[2021-04-30] MEDS: Metoprolol Tartrate 50 MG TAB PO SCH ×2 (08:05→20:59)
[2021-04-30] MEDS: Pramipexole Di-HCl 0.25 MG TAB PO SCH (08:09)
[2021-04-30] MEDS ORDERED: Magnesium 2 GM/50 ML 2 GM in Premix Bag 1 BAG IVPB SCH (09:00)
[2021-04-30 16:12] LABS: Potassium 3.4 mmol/L (3.5-5.1)
[2021-04-30] MEDS: Rosuvastatin 20 MG TAB PO SCH (20:59)
[2021-04-30] MEDS ORDERED: Lantus 1000 UNITS/10 ML VIAL SC SCH (21:00)
[2021-05-01] MEDS: Piperacillin/Tazobactam 3.375 GM in Sodium Chloride 0.9% 100 ML IVPB SCH ×2 (01:09→07:25)
[2021-05-01 04:27] LABS: Magnesium 1.9 mg/dL (1.6-2.6)
[2021-05-01] MEDS ORDERED: HYDROcodone/Acetaminophen 5/325 mg Tablet PO PRN (05:12)
[2021-05-01 06:00] LABS: #Eosinphils 0.3 10x3/uL (0.0-0.5); #Monocytes 1.1 10x3/uL (0.0-1.1); #Neutrophils 16.1 10x3/uL (1.5-8.4); %Basophils 0.2 % (0.0-2.0); %Eosinophils 1.5 % (0.0-6.0); %Lymphocytes 2.9 % (18.0-47.0); %Monocytes 6.1 % (0.0-10.0); %Neutrophils 88.1 % (40.0-75.0); Hemoglobin 12.3 g/dL (12.0-15.5); Mean Corpuscular HGB CONC 32.4 g/dL (32.0-36.0); Mean Corpuscular Hemoglobin 28.8 pg (27.0-33.0); Mean Platelet Volume 13.5 fl (7.4-10.4); Platelet Count 151 10x3/uL (150-450); RBC Distribution Width 14.1 % (11.5-14.5); Red Blood Cell (RBC) Count 4.27 10x6/uL (3.90-5.03); White Blood Cell (WBC) Count 18.2 10x3/uL (3.5-10.5)
[2021-05-01 06:08] LABS: ALT (SGPT) 32 U/L (8-55); AST (SGOT) 17 U/L (5-34); Albumin 2.9 g/dL (3.4-4.8); Alkaline Phosphatase 61 U/L (40-110); Anion Gap 12 mmol/L (10-20); BUN (Urea Nitrogen) 28 mg/dL (9.8-20.1); Bilirubin, Total 1.2 mg/dL (0.2-1.2); Calc. Creatinine Clearance 50 mL/min (70-130); Calcium 8.8 mg/dL (7.8-10.44); Carbon Dioxide 26 mmol/L (23-31); Chloride 106 mmol/L (98-107); Glucose 110 mg/dL (83-110); Potassium 3.7 mmol/L (3.5-5.1); Protein, Total 4.9 g/dL (5.8-8.1); Sodium 140 mmol/L (136-145)
[2021-05-01] MEDS: Budesonide 0.5 MG/2 ML NEB NEB SCH (06:50)
[2021-05-01] MEDS: Apixaban 2.5 MG TAB PO SCH (08:28)
[2021-05-01] MEDS: Pramipexole Di-HCl 0.25 MG TAB PO SCH (08:29)
[2021-05-01] MEDS: Metoprolol Tartrate 50 MG TAB PO SCH (08:29)
[2021-05-01] MEDS: Aspirin Chewable 81 MG TAB PO SCH (08:29)
[2021-05-01] MEDS: Losartan 25 MG TAB PO SCH (08:30)
[2021-05-01] MEDS ORDERED: Amlodipine 5 MG TAB PO SCH (09:00)
[2021-05-01] MEDS ORDERED: Magnesium 2 GM/50 ML 2 GM in Premix Bag 1 BAG IVPB SCH (09:00)
[2021-05-01] MEDS ORDERED: Piperacillin/Tazobactam 3.375 GM in Sodium Chloride 0.9% 100 ML IVPB SCH (14:00)
[2021-05-01 16:59] VITALS: BP 135/62; TEMP 97.2
[2021-05-01 21:41] LABS: SARS-CoV-2 PCR by NAA Not Detected (NotDetected)
== END 2021-05-01 18:36 | disposition home or self-care (01) | DRG 871 ==
LOC: SUATTDRO 12:13 → CSHERS 12:13 → OBSVTOIN 12:14 → CSHTELE 12:14 → CSHIMCU 04-25 14:19 → CSHTELE 04-27 14:51
PROVIDERS: ADMIT Student in an Organized Health Care Education/Training Program; ATTEND Family Medicine
DX: A41.9 Sepsis, unspecified organism (principal); J69.0 Pneumonitis due to inhalation of food and vomit; J96.21 Acute and chronic respiratory failure with hypoxia; R65.21 Severe sepsis with septic shock; I50.21 Acute systolic (congestive) heart failure; J96.22 Acute and chronic respiratory failure with hypercapnia; E87.1 Hypo-osmolality and hyponatremia; K57.92 Diverticulitis of intestine, part unspecified, without perforation or abscess without bleeding; J44.1 Chronic obstructive pulmonary disease with (acute) exacerbation; J44.0 Chronic obstructive pulmonary disease with (acute) lower respiratory infection; N17.9 Acute kidney failure, unspecified; E87.0 Hyperosmolality and hypernatremia; E87.3 Alkalosis; Z20.822 Contact with and (suspected) exposure to COVID-19; E78.5 Hyperlipidemia, unspecified; G25.81 Restless legs syndrome; I11.0 Hypertensive heart disease with heart failure; F41.9 Anxiety disorder, unspecified; H57.04 Mydriasis; I27.29 Other secondary pulmonary hypertension; R13.10 Dysphagia, unspecified; G62.9 Polyneuropathy, unspecified; R73.9 Hyperglycemia, unspecified; E87.6 Hypokalemia; I48.91 Unspecified atrial fibrillation; Z88.1 Allergy status to other antibiotic agents; Z88.8 Allergy status to other drugs, medicaments and biological substances; Z79.82 Long term (current) use of aspirin; Z79.899 Other long term (current) drug therapy; Z79.51 Long term (current) use of inhaled steroids; Z86.711 Personal history of pulmonary embolism; Z98.890 Other specified postprocedural states; Z87.891 Personal history of nicotine dependence; Z85.3 Personal history of malignant neoplasm of breast
CPT/HCPCS: 12013; 36415; 36416; 36600; 51701; 70450; 71045; 71250; 71275; 72125; 72128; 72131; 74018; 74177; 74230; 80048; 80053; 80061; 80069; 80202; 81003; 81015; 82550; 82805; 83036; 83605; 83735; 83880; 84100; 84145; 84443; 84484; 85025; 85379; 85610; 85730; 86850; 86900; 86901; 87040; 87081; 87449; 87899; 90471; 90715; 93005; 93010; 93306; 94640; 94660; 94760; 94762; 96372; 96374; 96375; 96376; C9113; G0378; J0456; J0692; J0696; J1650; J1815; J1940; J2270; J2543; J2920; J3370; J3475; J3490; J7030; J7050; J7120; J7611; J7620; J7626; S0028; U0002; U0003; U0005

== ENCOUNTER 2024-06-08 10:39 | Emergency (ER) | payer MEDICARE ==
[2024-06-08 12:43] LABS: #Basophils 0.05 10x3/uL (0.0-0.2); #Eosinophils 0.06 10x3/uL (0.0-0.5); #Monocytes 0.84 10x3/uL (0.0-1.1); #Neutrophils 7.13 10x3/uL (1.5-8.4); %Basophils 0.5 % (0.0-2.0); %Eosinophils 0.6 % (0.0-6.0); %Lymphocytes 13.1 % (18.0-47.0); %Neutrophils 76.6 % (40.0-75.0); Hematocrit 39.3 % (34.9-44.5); Hemoglobin 12.7 g/dL (12.0-15.5); Mean Corpuscular HGB CONC 32.3 g/dL (32.0-36.0); Mean Corpuscular Hemoglobin 28.3 pg (27.0-33.0); Mean Corpuscular Volume 87.7 fL (81.6-98.3); Mean Platelet Volume 12.3 fL (7.4-10.4); Platelet Count 156 10x3/uL (150-450); RBC Distribution Width 15.9 % (11.5-14.5); Red Blood Cell (RBC) Count 4.48 10x6/uL (3.90-5.03); White Blood Cell (WBC) Count 9.32 10x3/uL (3.5-10.5)
[2024-06-08 12:55] LABS: INR-International Normal Ratio 1.1; PTT 24.8 sec (22.0-33.0); Prothrombin Time 11.7 sec (9.5-12.1)
[2024-06-08 12:57] LABS: ALT (SGPT) 9 U/L (8-55); AST (SGOT) 19 U/L (5-34); Albumin 3.8 g/dL (3.4-4.8); Alkaline Phosphatase 84 U/L (40-110); Anion Gap 15 mmol/L (10-20); BUN (Urea Nitrogen) 19 mg/dL (9.8-20.1); Bilirubin, Total 0.5 mg/dL (0.2-1.2); Calc. Creatinine Clearance 0 mL/min (70-130); Calcium 9.7 mg/dL (7.8-10.44); Carbon Dioxide 25 mmol/L (23-31); Chloride 102 mmol/L (98-107); Estimated GFR 80; Globulin 3.9 g/dL (2.4-3.5); Glucose 78 mg/dL (83-110); Potassium 5.9 mmol/L (3.5-5.1); Protein, Total 7.7 g/dL (5.8-8.1); Sodium 136 mmol/L (136-145)
[2024-06-08] MEDS ORDERED: Acetaminophen 500 MG TAB ONE (13:57)
== END 2024-06-08 14:23 | disposition home or self-care (01) ==
LOC: CSHERS 10:39
DX: S43.402A Unspecified sprain of left shoulder joint, initial encounter (principal); S73.102A Unspecified sprain of left hip, initial encounter; S00.83XA Contusion of other part of head, initial encounter; S00.81XA Abrasion of other part of head, initial encounter; S09.90XA Unspecified injury of head, initial encounter; I10 Essential (primary) hypertension; E78.5 Hyperlipidemia, unspecified; J44.9 Chronic obstructive pulmonary disease, unspecified; G62.9 Polyneuropathy, unspecified; W18.12XA Fall from or off toilet with subsequent striking against object, initial encounter; Y93.89 Activity, other specified; Y92.002 Bathroom of unspecified non-institutional (private) residence as the place of occurrence of the external cause; Z87.891 Personal history of nicotine dependence
CPT/HCPCS: 36415; 70450; 71045; 72125; 80053; 85025; 85610; 85730; 93005